=== PATIENT | female | born 1990 | race African-American/Black ===

== ENCOUNTER 2018-09-09 16:05 | Outpatient (CLI) | payer OTHER ==
--- NOTE | 2018-09-09 17:40 | RAD ---
THORACIC SPINE TWO VIEWS: 09/09/18 HISTORY: Thoracic spine pain. COMPARISON: None. FINDINGS: No acute fracture or malalignment. The visualized ribs are unremarkable. Paraspinal soft tissues are unremarkable. IMPRESSION: No acute abnormality of the thoracic spine. POS: TATYANA
--- NOTE | 2018-09-09 17:42 | RAD ---
LUMBAR SPINE TWO VIEW 09/09/18 HISTORY: Injury. COMPARISON: None. FINDINGS: Five nonribbearing lumbar type vertebrae. No acute fracture or malalignment. Minimal degenerative dis c space height loss at L4-5. Spinous processes appear to be intact. IMPRESSION: Intact lumbar spine. POS: TATYANA
== END 2018-09-09 16:06 | disposition home or self-care (01) ==
LOC: BICRAD 16:05
PROVIDERS: ATTEND Nurse Practitioner Family
DX: M54.5 Low back pain (principal)
CPT/HCPCS: 72070; 72100

== ENCOUNTER 2020-07-31 13:28 | Emergency (ER) | payer BC, OTHER, SELFPAY ==
[2020-07-31 14:44] LABS: HIV (1/2) Antibody/Antigen Non-Reactive (NonReactive); HIV 1/2 INDEX 0.12 S/CO (<1.00); Hep C IgG Ab Non-Reactive (NonReactive); Hep C Index 0.07 S/CO (0-0.79)
[2020-07-31 14:48] LABS: HBSAB Concentration 324.18 mIU/mL; Hep B Surf AB Reactive (NonReactive)
== END 2020-07-31 15:16 | disposition home or self-care (01) ==
LOC: ERS 13:28
DX: S61.031A Puncture wound without foreign body of right thumb without damage to nail, initial encounter (principal); W46.1XXA Contact with contaminated hypodermic needle, initial encounter
CPT/HCPCS: 36415; 86706; 86803; 87389; 99283

== ENCOUNTER 2021-01-03 13:21 | Emergency (ER) | payer OTHER ==
[2021-01-03 15:03] LABS: #Eosinphils 0.2 thou/uL (0.0-0.7); #Lymphocytes 1.9 thou/uL (1.20-3.40); #Monocytes 0.3 thou/uL (0.11-0.59); #Neutrophils 2.6 thou/uL (1.40-6.50); %Basophils 0.5 % (0.0-1.0); %Eosinophils 3.4 % (0.0-10.0); %Lymphocytes 37.2 % (21.0-51.0); Hemoglobin 11.3 g/dL (12.0-16.0); Mean Corpuscular HGB CONC 33.3 g/dL (32.0-36.0); Mean Corpuscular Volume 87.1 fL (78.0-98.0); Mean Platelet Volume 8.7 fL (7.4-10.4); Platelet Count 314 thou/uL (130-400); RBC Distribution Width 11.8 % (11.5-14.5)
[2021-01-03 15:28] LABS: ALT (SGPT) 21 U/L (8-55); AST (SGOT) 19 U/L (5-34); Alkaline Phosphatase 70 U/L (40-110); Anion Gap 13 mmol/L (10-20); BUN (Urea Nitrogen) 8 mg/dL (7.0-18.7); Bilirubin, Total 0.6 mg/dL (0.2-1.2); Calc. Creatinine Clearance 0 mL/min (70-130); Calcium 8.8 mg/dL (7.8-10.44); Carbon Dioxide 23 mmol/L (22-29); Chloride 106 mmol/L (98-107); Globulin 3.4 g/dL (2.4-3.5); Glucose 88 mg/dL (70-105); Protein, Total 7.4 g/dL (6.0-8.3); Sodium 138 mmol/L (136-145)
[2021-01-03 15:29] LABS: BHCG - Serum Negative (NEGATIVE); Pregs Control Bar Appear? YES (CONTROL BAR)
[2021-01-03 15:30] LABS: Pregs Control Background? CLEAR/WHITE (CLR/WHITE)
[2021-01-03] MEDS ORDERED: Ketorolac Tromethamine 30 MG/ML VIAL ONE (16:14)
[2021-01-03 16:54] LABS: Bacteria/HPF None Seen HPF (None Seen); Bilirubin Negative (Negative); Blood, Urine 2+ (Negative); Clarity Clear (Clear); Glucose, Urine (Dipstick) Normal (Negative); Ketone, Urine Trace mg/dL (Negative); Leukocyte Negative Leu/uL (Negative); Nitrite Negative (Negative); Protein, Urine (Dipstick) 10 mg/dL (Neg-Trace); RBC/HPF 0-3 HPF (0-3); Specific Gravity, Urine 1.028 (1.002-1.036); Urobilinogen Normal mg/dL (Less than 2); WBC/HPF 0-3 HPF (0-3); pH, Urine 5.5 (5.0-9.0)
== END 2021-01-03 16:35 | disposition home or self-care (01) ==
LOC: ERS 13:21
DX: N94.6 Dysmenorrhea, unspecified (principal)
CPT/HCPCS: 36415; 80053; 81003; 81015; 84703; 85025; 96372; 99284; J1885